=== PATIENT | female | born 1935 | race American Indian/Alaskan Native ===

== ENCOUNTER 2017-05-24 19:55 | Emergency (ER) | payer MEDICARE ==
[2017-05-24] MEDS ORDERED: ATROVENT IH ONE (21:02)
[2017-05-24] MEDS ORDERED: PROVENTIL IH ONE ×2 (21:02→23:35)
[2017-05-24] MEDS ORDERED: NORCO 5/325 PO ONE (21:02)
[2017-05-24 21:09] LABS: Anion Gap 18 mmol/L; Blood Urea Nitrogen 18 mg/dL (7-17); Calcium 9.8 mg/dL (8.4-10.2); Carbon Dioxide 27 mmol/L (22-30); Chloride 98.6 mmol/L (98-107); Glucose 134 mg/dL (65-100); Potassium 4.2 mmol/L (3.6-5.0); Sodium 139 mmol/L (137-145)
[2017-05-24 21:13] LABS: Alanine Aminotransferase 14 units/L (7-56); Albumin 3.2 g/dL (3.9-5); Albumin/Globulin Ratio 1.1 %; Alkaline Phosphatase 88 units/L (35-129); Lipase 33 units/L (13-60)
[2017-05-24 21:15] LABS: Bilirubin,Direct < 0.2 mg/dL (0-0.2)
[2017-05-24 21:35] LABS: Hematocrit 30.4 % (30.3-42.9); Hemoglobin 9.2 gm/dl (10.1-14.3); Mean Corpuscular HGB Conc 30 % (30-34); Mean Corpuscular Hemoglobin 24 pg (28-32); Mean Corpuscular Volume 80 fl (79-97); Platelet Count 218 K/mm3 (140-440); Red Blood Count 3.81 M/mm3 (3.65-5.03); Red Cell Distribution Width 17.7 % (13.2-15.2); White Blood Count 7.2 K/mm3 (4.5-11.0)
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
[2017-05-24 22:16] LABS: Bacteria,Urine 1+ /HPF (Negative); Bilirubin,Urine NEG (Negative); Blood,Urine SM (Negative); Ketones,Urine NEG (Negative); Leukocyte Esterase,Urine MOD (Negative); Mucus,Urine FEW /HPF; Nitrite,Urine NEG (Negative); Protein,Urine >500 mg/dL (Negative); Urobilinogen,Urine < 2.0 mg/dL (<2.0)
[2017-05-24] MEDS ORDERED: DELTASONE PO ONE (22:33)
--- NOTE | 2017-05-24 22:52 | Cat Scan Report ---
FINAL REPORT PROCEDURE: CT ABDOMEN PELVIS WO CON TECHNIQUE: Computerized axial tomography of the abdomen and pelvis was performed without intravenous contrast. This study is performed without intravascular contrast material and its sensitivity for abdominal and pelvic pathology, including neoplasms, inflammation, abscess, free fluid, thrombosis, arterial dissection and infarction, is reduced compared with a contrast enhanced study. HISTORY: abd pain COMPARISON: No prior studies are available for comparison. FINDINGS: Visualized lower thorax: No significant abnormality. Liver: Normal size and attenuation. Spleen: Normal size and attenuation. Gallbladder and biliary system: There has been a cholecystectomy. Bile ducts are normal in caliber.. Pancreas: Normal. Adrenals: Normal. Kidneys: There are no kidney stones or ureteral stones. There is no hydronephrosis.. GI tract: There is diverticulosis of the sigmoid and left colon. There is mild induration of the pelvic fat suggesting possibility of focal acute diverticulitis of the sigmoid colon. There is no obstruction, perforation, mass or abscess. The stomach and small bowel are unremarkable. The appendix is not identified. There is no indirect evidence of appendicitis.. Lymph nodes and mesentery: Normal. Vasculature: There is calcified plaque in the aorta. There is no aneurysm.. Bladder: Normal. Reproductive organs: There has been a hysterectomy.. Peritoneum: There is no ascites or free air. Musculoskeletal structures: No significant abnormality. Other: None. IMPRESSION: There has been a cholecystectomy. Bile ducts are normal in caliber.. There are no kidney stones or ureteral stones. There is no hydronephrosis.. There is diverticulosis of the sigmoid and left colon. There is mild induration of the pelvic fat suggesting possibility of focal acute diverticulitis of the sigmoid colon. There is no obstruction, perforation, mass or abscess. There has been a hysterectomy.. There is no ascites or free air. .
[2017-05-24 23:12] LABS: Blastocytes % (Manual) 0 %; Diff Status Complete; Hypochromasia 1+
[2017-05-24] MEDS ORDERED: FLAGYL PO ONE (23:28)
[2017-05-24] MEDS ORDERED: LEVAQUIN PO ONE (23:28)
[2017-05-25 02:09] VITALS: BP 146/90
--- NOTE | 2017-05-25 09:33 | XRay Report ---
Chest 2 views: History: Shortness of breath, cough. Findings: Heart size at upper limit of normal. Trachea is midline. No consolidation, pneumothorax or pleural effusion. Impression: No acute cardiopulmonary findings.
== END 2017-05-25 02:08 ==
LOC: ED 19:55
DX: J44.1 Chronic obstructive pulmonary disease with (acute) exacerbation (principal); R07.89 Other chest pain; D64.9 Anemia, unspecified; K57.92 Diverticulitis of intestine, part unspecified, without perforation or abscess without bleeding; E11.22 Type 2 diabetes mellitus with diabetic chronic kidney disease; I12.9 Hypertensive chronic kidney disease with stage 1 through stage 4 chronic kidney disease, or unspecified chronic kidney disease; N18.9 Chronic kidney disease, unspecified; Z88.0 Allergy status to penicillin
CPT/HCPCS: 36415; 71020; 74176; 80048; 80074; 81001; 83690; 84484; 85007; 85025; 93005; 93010; 94640; 99285; J7512

== ENCOUNTER 2017-05-26 21:07 | Emergency (ER) | payer MEDICARE ==
[2017-05-26 21:42] LABS: Eosinophils % (Auto) 9.9 % (0.0-4.3); Hematocrit 30.7 % (30.3-42.9); Hemoglobin 9.9 gm/dl (10.1-14.3); Mean Corpuscular HGB Conc 32 % (30-34); Mean Corpuscular Volume 78 fl (79-97); Platelet Count 240 K/mm3 (140-440); Red Blood Count 3.92 M/mm3 (3.65-5.03); Red Cell Distribution Width 17.4 % (13.2-15.2); White Blood Count 7.8 K/mm3 (4.5-11.0)
[2017-05-26 21:43] LABS: Mean Corpuscular Hemoglobin 25 pg (28-32)
[2017-05-26 22:01] LABS: BUN/Creatinine Ratio 12.27; Chloride 98.6 mmol/L (98-107); Potassium 4.4 mmol/L (3.6-5.0)
[2017-05-26 23:06] LABS: Bilirubin,Urine NEG (Negative); Blood,Urine SM (Negative); Ketones,Urine NEG (Negative); Leukocyte Esterase,Urine SM (Negative); Mucus,Urine FEW /HPF; Nitrite,Urine NEG (Negative); Urobilinogen,Urine < 2.0 mg/dL (<2.0)
[2017-05-26 23:07] LABS: Protein,Urine >500 mg/dL (Negative)
[2017-05-26 23:08] VITALS: BP 175/86
[2017-05-26] MEDS ORDERED: NACL 0.9% 1000 ML 1,000 ML IV ONE (23:40)
[2017-05-26] MEDS ORDERED: ZOFRAN IV ONE (23:40)
--- NOTE | 2017-05-27 01:54 | Emergency Department Report ---
HPI - General Chief Complaint: Nausea/Vomiting/Diarrhea Time Seen by Provider: 05/26/17 23:40 ED Past Medical Hx - Past Medical History Hx Hypertension: Yes Hx Diabetes: Yes Hx Renal Disease: Yes (chronic renal insuf) Hx COPD: Yes (home o2) Additional medical history: gout. Sleep apnea CPAP - Surgical History Hx Cholecystectomy: Yes Additional Surgical History: part hyst - Social History Smoking Status: Never Smoker Substance Use Type: None - Medications Home Medications: Home Medications Medication Instructions Recorded Confirmed Last Taken Type ALBUTEROL Inhaler [ProAir HFA 2 puff IH QID PRN #1 inhalation 05/25/17 Unknown Rx Inhaler] Levofloxacin [Levaquin] 750 mg PO QDAY #7 tablet 05/25/17 Unknown Rx Prednisone [predniSONE 10 mg 10 mg PO .TAPER #1 tab.ds.pk 05/25/17 Unknown Rx (6-Day Pack, 21 Tabs)] metroNIDAZOLE [Flagyl] 500 mg PO Q12HR #21 tab 05/25/17 Unknown Rx traMADol [Ultram 50 MG tab] 50 mg PO Q6HR PRN #20 tablet 05/25/17 Unknown Rx Ciprofloxacin HCl [Ciprofloxacin 500 mg PO Q12HR #20 tab 05/27/17 Unknown Rx TAB] ED Review of Systems ROS: Stated complaint: ASTHMA Other details as noted in HPI Physical Exam - Physical Exam Vital Signs: Vital Signs 05/26/17 05/26/17 21:14 23:07 Temperature 98.7 F 98.6 F Pulse Rate 95 H 68 Respiratory 20 Rate Blood Pressure 160/79 Blood Pressure 175/86 [Left] O2 Sat by Pulse 98 98 Oximetry Physical Exam: Physical Exam: - General Limitations: No Limitations General appearance: alert, in no apparent distress. - Head Head exam: Present: atraumatic, normocephalic - Eye Eye exam: Present: normal appearance - ENT ENT exam: Present: mucous membranes moist - Neck Neck exam: Present: normal inspection - Respiratory Respiratory exam: Present: normal lung sounds bilaterally. Absent: respiratory distress - Cardiovascular Cardiovascular Exam: Present: normal rhythm, normal rate. Absent: systolic murmur, diastolic murmur, rubs, gallop - GI/Abdominal GI/Abdominal exam: Present: soft, normal bowel sounds - Extremities Exam Extremities exam: Present: normal inspection - Back Exam Back exam: Present: normal inspection - Neurological Exam Neurological exam: Present: alert, oriented X3 - Psychiatric Psychiatric exam: normal affect and mood - Skin Skin exam: Present: warm, dry, intact, normal color. Absent: rash ED Course Vital Signs 05/26/17 05/26/17 21:14 23:07 Temperature 98.7 F 98.6 F Pulse Rate 95 H 68 Respiratory 20 Rate Blood Pressure 160/79 Blood Pressure 175/86 [Left] O2 Sat by Pulse 98 98 Oximetry ED Medical Decision Making - Lab Data Result diagrams: 05/26/17 21:31 05/26/17 21:31 Critical care attestation.: If time is entered above; I have spent that time in minutes in the direct care of this critically ill patient, excluding procedure time. ED Disposition Clinical Impression: UTI (urinary tract infection) Qualifiers: Urinary tract infection type: acute cystitis Hematuria presence: without hematuria Qualified Code(s): N30.00 - Acute cystitis without hematuria Disposition: DC-01 TO HOME OR SELFCARE Is pt being admited?: No Does the pt Need Aspirin: No Condition: Stable Instructions: Urinary Tract Infection in Women (ED) Prescriptions: Ciprofloxacin HCl [Ciprofloxacin TAB] 500 mg PO Q12HR #20 tab Referrals: PRIMARY CARE, [Primary Care Provider] - 3-5 Days
== END 2017-05-27 03:00 | disposition home or self-care (01) ==
LOC: ED 21:07
DX: N30.00 Acute cystitis without hematuria (principal); E11.22 Type 2 diabetes mellitus with diabetic chronic kidney disease; I12.0 Hypertensive chronic kidney disease with stage 5 chronic kidney disease or end stage renal disease; N18.6 End stage renal disease; J44.9 Chronic obstructive pulmonary disease, unspecified
CPT/HCPCS: 36415; 80048; 81001; 82962; 85025; 96361; 96374; 99283; J2405; J7030